=== PATIENT | female | born 1950 | race Caucasian/White ===

== ENCOUNTER 2020-08-16 10:05 | Observation (INO) | payer MEDICARE, BC ==
--- NOTE | 2020-08-16 10:09 | EDM.PDOC ---
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 Continue to observe closely with repeat labs, chest x-ray, and EKG in the a.m. Qualifiers: Coronary Disease-Associated Artery/Lesion type: [place] artery [place] vs. transplanted heart: [place] heart Associated angina: without angina Qualified Code(s): I25.10 - Atherosclerotic heart disease of [place] coronary artery without angina pectoris (7) Hypertension SNOMED Code(s): 47126080 Code(s): I10 - ESSENTIAL (PRIMARY) HYPERTENSION Status: Chronic Priority: Medium Current Visit: Yes Annotation/Comment:: Stable in the emergency room. Qualifiers: Hypertension type: essential hypertension Qualified Code(s): I10 - Essential (primary) hypertension (8) Hypothyroidism (acquired) SNOMED Code(s): 495749192 Code(s): E03.9 - HYPOTHYROIDISM, UNSPECIFIED Status: Acute Priority: Medium Current Visit: Yes Onset Date: 08/16/20 Annotation/Comment:: Mildly elevated TSH with possible beginning hypothyroidism. Note history of thyroid nodules in the past with negative thyroid biopsy as above. Recommend repeat TSH in 4 weeks by her regular providers. (9) PVCs (premature ventricular contractions) SNOMED Code(s): 24396498 Code(s): I49.3 - VENTRICULAR PREMATURE DEPOLARIZATION Status: Chronic Priority: Medium Current Visit: Yes Annotation/Comment:: No significant arrhythmia during her emergency room care. Note previous Holter monitor and history of borderline short [place] interval. - Problem List Review Problem List Initiated/Reviewed/Updated: Yes - My Orders Last 24 Hours: My Active Orders 08/16/20 Breakfast Nothing per Oral Now Diet [DIET] 08/16/20 10:10 Cardiac Monitoring [RC] . DIRECTED EKG Documentation Completion [RC] ASDIRECTED Oxygen Therapy, ED [RC] PRN Peripheral IV Care [RC] . DIRECTED Pulse Oximetry [RC] CONTINUOUS Up With Assistance [RC] PFP Vital Signs [RC] PFP Chest 1V Frontal [CR] Stat Sodium Chloride 0.9% [Saline Flush] 10 ml FLUSH ASDIRECTED PRN Obtain Past Medical Record [OM.PC] Urgent Peripheral IV Insertion Adult [OM.PC] Stat Resuscitation Status Stat 08/16/20 10:11 Vaccines to be Administered [RC] PER UNIT ROUTINE 08/16/20 10:13 Wound Care [RC] DAILY - Assessment/Plan Admission H&P: Please use this note as an admission H&P Last 24 Hours: My Active Orders 08/16/20 Breakfast Nothing per Oral Now Diet [DIET] 08/16/20 10:10 Cardiac Monitoring [RC] . DIRECTED EKG Documentation Completion [RC] ASDIRECTED Oxygen Therapy, ED [RC] PRN Peripheral IV Care [RC] . DIRECTED Pulse Oximetry [RC] CONTINUOUS Up With Assistance [RC] PFP Vital Signs [RC] PFP Chest 1V Frontal [CR] Stat Sodium Chloride 0.9% [Saline Flush] 10 ml FLUSH ASDIRECTED PRN Obtain Past Medical Record [OM.PC] Urgent Peripheral IV Insertion Adult [OM.PC] Stat Resuscitation Status Stat 08/16/20 10:11 Vaccines to be Administered [RC] PER UNIT ROUTINE 08/16/20 10:13 Wound Care [RC] DAILY Assessment:: As above Plan: As above. Extensive precautions were given to the patient and her , who are in agreement with the treatment plan. The patient's condition is stable enough for observation status and general supervision. [facility] physician assumes care later this afternoon.
[2020-08-16] MEDS ORDERED: Famotidine 20 MG/2 ML SDV IVPUSH ONE (10:10)
[2020-08-16] MEDS ORDERED: Sodium Chloride 0.9% 10 ML Syringe FLUSH PRN ×2 (10:10→13:28)
[2020-08-16] MEDS ORDERED: Diphtheria,Pertussis(Acell),Tetanus Vaccine 0.5 ML Syringe IM ONE (10:11)
[2020-08-16] MEDS ORDERED: Ondansetron 4 MG/2 ML SDV IVPUSH ONE (10:12)
[2020-08-16] MEDS ORDERED: Lactated Ringers 1,000 ML IV ONE ×2 (10:12→11:12)
[2020-08-16] MEDS ORDERED: HYDROmorphone 0.5 MG/0.5 ML Syringe IVPUSH ONE (10:13)
[2020-08-16 10:32] LABS: PTT,PARTIAL THROMBOPLSTIN TIME 23.3 SEC (24.5-32.8)
[2020-08-16 10:43] LABS: CHLORIDE,CL 98 mmol/L (98-107); SODIUM,NA 134 mmol/L (136-145)
[2020-08-16] MEDS ORDERED: Temazepam 15 MG Cap PO PRN (13:28)
[2020-08-16] MEDS ORDERED: HYDROmorphone 0.5 MG/0.5 ML Syringe IVPUSH PRN ×2 (13:30→20:42)
[2020-08-16] MEDS: Lactated Ringers 1,000 ML IV SCH ×2 (13:57→23:14)
[2020-08-16] MEDS ORDERED: Acetaminophen 325 MG Tab PO PRN (14:00)
[2020-08-16] MEDS ORDERED: Ondansetron 4 MG/2 ML SDV IVPUSH PRN (16:00)
[2020-08-16 19:14] VITALS: BP 149/71; PULSE 57
[2020-08-16] MEDS ORDERED: Bacitracin Oint 1 GM U/D Packet TOP PRN (20:42)
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
[2020-08-17] MEDS ORDERED: Aspirin 81 MG Tab.Chew PO SCH (08:00)
[2020-08-17] MEDS ORDERED: Hydrochlorothiazide 25 MG Tab PO SCH (08:00)
[2020-08-17] MEDS ORDERED: Lisinopril 20 MG Tab PO SCH (08:00)
[2020-08-17] MEDS ORDERED: Losartan 50 MG Tab PO SCH (08:00)
== END 2020-08-16 23:36 ==
LOC: LL.ED 10:05 → LL.MS 13:03
PROVIDERS: ADMIT Family Medicine; ATTEND Emergency Medicine
DX: T20.00XA Burn of unspecified degree of head, face, and neck, unspecified site, initial encounter (principal); T23.001A Burn of unspecified degree of right hand, unspecified site, initial encounter; T23.002A Burn of unspecified degree of left hand, unspecified site, initial encounter; T24.001A Burn of unspecified degree of unspecified site of right lower limb, except ankle and foot, initial encounter; T24.002A Burn of unspecified degree of unspecified site of left lower limb, except ankle and foot, initial encounter; U07.1 COVID-19; I25.10 Atherosclerotic heart disease of native coronary artery without angina pectoris; E78.00 Pure hypercholesterolemia, unspecified; I10 Essential (primary) hypertension; R79.89 Other specified abnormal findings of blood chemistry; E00.1 Congenital iodine-deficiency syndrome, myxedematous type; E03.9 Hypothyroidism, unspecified; I49.3 Ventricular premature depolarization; E78.5 Hyperlipidemia, unspecified; Z98.890 Other specified postprocedural states; Z90.49 Acquired absence of other specified parts of digestive tract; Z87.891 Personal history of nicotine dependence; X08.8XXA Exposure to other specified smoke, fire and flames, initial encounter; Z88.8 Allergy status to other drugs, medicaments and biological substances
CPT/HCPCS: 36415; 71045; 80053; 82550; 82553; 83605; 83735; 83880; 84443; 84484; 84550; 85025; 85610; 85730; 90471; 90715; 93005; 93010; 96374; 96375; 96376; 99236; 99285-25; A9270-GY; G0378; J1170; J2405; J3490; J7120; U0002

== ENCOUNTER 2023-12-06 15:04 | Emergency (ER) | payer MEDICARE ==
[2023-12-06 15:06] VITALS: BP 158/126; PULSE 100
[2023-12-06 15:39] LABS: BASOPHILS ABSOLUTE AUTO 0.03 K/uL (0.00-0.20); BASOPHILS PERCENT AUTO 0.2 % (0.0-2.0); EOSINOPHILS ABSOLUTE AUTO 0.06 K/uL (0.00-0.50); EOSINOPHILS PERCENT AUTO 0.3 % (0.0-5.0); HEMATOCRIT 41.6 % (34.0-46.0); HEMOGLOBIN 13.8 g/dL (11.7-15.5); LYMPHOCYTES PERCENT AUTO 12.6 % (10.0-50.0); MEAN CORPUSCULAR HEMOGLOBIN 29.6 pg (28.2-33.3); MEAN CORPUSCULAR HGB CONC 33.2 g/dL (31.7-36.0); MEAN CORPUSCULAR VOLUME 89.1 fL (84.0-98.0); MONOCYTES ABSOLUTE AUTO 1.33 K/uL (0.00-1.00); MONOCYTES PERCENT AUTO 7.6 % (2.0-14.0); NEUTROPHILS ABSOLUTE AUTO 13.88 K/uL (1.40-7.00); NEUTROPHILS PERCENT AUTO 79.3 % (45.0-80.0); PLATELET COUNT,PLT 326 K/uL (150-350); RED BLOOD CELL COUNT 4.67 M/uL (3.77-5.09); RED CELL DISTRIBUTION WIDTH 14.1 % (11.2-14.1); WHITE BLOOD CELL COUNT,WBC 17.5 K/uL (4.0-10.2)
[2023-12-06 15:43] LABS: APPEARANCE,URINE CLOUDY; BILIRUBIN,URINE NEGATIVE (NEGATIVE); COLOR,URINE YELLOW; GLUCOSE,URINE NEGATIVE (NEGATIVE); KETONES,URINE NEGATIVE (NEGATIVE); LEUKOCYTE ESTERASE,URINE MODERATE (NEGATIVE); NITRITE,URINE NEGATIVE (NEGATIVE); OCCULT BLOOD,URINE SMALL (NEGATIVE); PH,URINE 5.5 (5.0-9.0); PROTEIN,URINE 100 mg/dL (NEGATIVE); UROBILINOGEN,URINE 0.2 E.U./dL (0.2-1.0)
[2023-12-06 15:46] LABS: ALANINE AMINOTRANSFERASE,ALT 36 U/L (12-78); ALBUMIN 4.2 g/dL (3.4-5.0); ALKALINE PHOSPHATASE 62 IU/L (46-116); ANION GAP 18.5 meq/L (7-15); ASPARTATE AMNIOTRANSFERASE,AST 25 U/L (15-37); BILIRUBIN TOTAL 0.3 mg/dL (0.2-1.0); BLOOD UREA NITROGEN,BUN 15 mg/dL (7-18); CALCIUM 9.9 mg/dL (8.5-10.1); CARBON DIOXIDE,CO2 21.9 mmol/L (21.0-32.0); CHLORIDE,CL 99 mmol/L (98-107); CREATININE 0.75 mg/dL (0.51-1.17); ESTIMATED GFR 83 mL/min (>=60); GLUCOSE RANDOM 136 mg/dL (70-99); POTASSIUM,K 4.4 mmol/L (3.5-5.1); PROTEIN TOTAL,TP 8.5 g/dL (6.4-8.2); SODIUM,NA 135 mmol/L (136-145)
[2023-12-06] MEDS: Ondansetron 4 MG/2 ML SDV IVPUSH ONE (15:46)
[2023-12-06] MEDS: Sodium Chloride 0.9% 10 ML Syringe FLUSH PRN (15:46)
[2023-12-06 15:50] LABS: BACTERIA,URINE FEW /HPF (NONE TO FEW); RBC,URINE 40-50 /HPF; WBC,URINE >100 /HPF
[2023-12-06] MEDS: Sodium Chloride 0.9% 1,000 ML IV ONE (15:50)
[2023-12-06 16:38] LABS: CORONAVIRUS COVID-19 NAA NEGATIVE (NEGATIVE); INFLUENZA A NAA NEGATIVE (NEGATIVE); INFLUENZA B NAA NEGATIVE (NEGATIVE); RESPIRATORY SYNCYTIAL VIR NAA NEGATIVE (NEGATIVE)
== END 2023-12-06 16:53 | disposition home or self-care (01) ==
LOC: LL.ED 15:04
DX: R55 Syncope and collapse (principal); N30.00 Acute cystitis without hematuria; I25.10 Atherosclerotic heart disease of native coronary artery without angina pectoris; I10 Essential (primary) hypertension; Z79.899 Other long term (current) drug therapy; Z88.8 Allergy status to other drugs, medicaments and biological substances
CPT/HCPCS: 0241U; 36415; 80053; 81001; 83605; 84484; 85025; 93005; 96361; 96374; 99284; J2405; J7030; 93010; J3490